=== PATIENT | female | born 1950 | race Caucasian/White ===

== ENCOUNTER 2017-01-11 10:00 | Outpatient (RCR) | payer MEDICARE, MEDICAID, SELFPAY | END 2017-02-02 | LOC: OT 10:00 | PROVIDERS: Visit Provider Orthopaedic Surgery | DX: M25.511 Pain in right shoulder (principal); M25.512 Pain in left shoulder | CPT/HCPCS: G8990; G8991; G8992; 97014; 97033; 97110; 97165; G0283 ==

== ENCOUNTER → 2017-01-23 | Outpatient (CLI) | payer MEDICARE, MEDICAID, SELFPAY | PROVIDERS: Family Provider Internal Medicine; Visit Provider Internal Medicine | DX: R50.9 Fever, unspecified (principal); R05 Cough; R09.3 Abnormal sputum | CPT/HCPCS: 71020 ==

== ENCOUNTER → 2017-03-20 09:36 | Outpatient (CLI) | payer MEDICARE, MEDICAID, SELFPAY ==
[2017-03-20 10:53] LABS: Anion Gap 12.5 mEq/L (5-15); Blood Urea Nitrogen 30 mg/dL (7-18); Carbon Dioxide 26 mmol/L (21.0-32.0); Chloride 108 mmol/L (98-107); Creatinine,Serum 1.47 mg/dL (0.55-1.02); Estimated Glomerular Filt Rate 36 ml/min (>60); GFR (African American) 43 ML/MIN (>60); Potassium 5.5 mmoL/L (3.5-5.1); Sodium 141 mmol/L (136-145)
[2017-03-20 11:48] LABS: Glucose 60 mg/dL (74-106)
[2017-03-20 12:39] LABS: Hemoglobin A1C 6.3 % (0.0-7.0)
[2017-03-23 12:03] LABS: Vitamin B12 573 pg/mL (232-1245)
== END ==
PROVIDERS: PCP Internal Medicine; Visit Provider Internal Medicine
DX: E11.42 Type 2 diabetes mellitus with diabetic polyneuropathy (principal); N18.3 Chronic kidney disease, stage 3 (moderate); W19.XXXA Unspecified fall, initial encounter
CPT/HCPCS: 36415; 80048; 82607; 83036

== ENCOUNTER → 2017-04-17 10:06 | Outpatient (CLI) | payer MEDICARE, MEDICAID, SELFPAY ==
[2017-04-17 10:30] LABS: Anion Gap 10.1 mEq/L (5-15); Blood Urea Nitrogen 33 mg/dL (7-18); Carbon Dioxide 32 mmol/L (21.0-32.0); Chloride 106 mmol/L (98-107); Creatinine,Serum 1.47 mg/dL (0.55-1.02); Estimated Glomerular Filt Rate 36 ml/min (>60); GFR (African American) 43 ML/MIN (>60); Potassium 4.1 mmoL/L (3.5-5.1); Sodium 144 mmol/L (136-145)
[2017-04-17 10:55] LABS: Glucose 66 mg/dL (74-106)
== END ==
PROVIDERS: Visit Provider Internal Medicine
DX: R60.9 Edema, unspecified (principal); N18.3 Chronic kidney disease, stage 3 (moderate); E11.22 Type 2 diabetes mellitus with diabetic chronic kidney disease
CPT/HCPCS: 36415; 80048

== ENCOUNTER → 2017-05-28 10:53 | Outpatient (CLI) | payer MEDICARE, MEDICAID, SELFPAY ==
[2017-05-28 10:59] LABS: Microscopic, Urine URINE MICROSCOPIC (MICROSCOPIC)
[2017-05-28 11:21] LABS: Creatinine,Urine Random 18 mg/dL (20-320)
[2017-05-28 11:23] LABS: Basophils % 0.4 % (0.1-2.0); Eosinophils # 0.3 K/mm3 (0.0-0.4); Eosinophils % 4.6 % (0.1-12.0); Hematocrit 31.2 % (37.0-47.0); Hemoglobin 9.7 g/dL (12.2-16.2); Lymphocytes # 1.8 K/mm3 (0.7-4.5); Mean Corpuscular HGB Conc 31.2 g/dL (31.8-35.4); Mean Corpuscular Hemoglobin 30.9 pg (27.0-31.2); Mean Corpuscular Volume 99.2 fl (81-99); Mean Platelet Volume 9.8 fl (7.4-10.4); Monocytes # 0.5 K/mm3 (0.1-1.0); Monocytes % 8.8 % (1.7-9.3); Neutrophils # 2.9 K/mm3 (1.8-7.8); Neutrophils % 53.1 % (37.0-80.0); Platelet Count 189 K/mm3 (142-424); Red Blood Count 3.14 M/mm3 (4.20-5.40); Red Cell Distribution Width 14.9 % (11.5-17.5); White Blood Count 5.4 K/mm3 (4.8-10.8)
[2017-05-28 11:30] LABS: Total Protein,Urine Random < 6.0 mg/dL (0.0-11.9)
[2017-05-28 11:58] LABS: Appearance,Urine CLEAR (Clear); Bilirubin,Urine Negative (Negative); Blood, Urine Negative (Negative); Color,Urine YELLOW (Yellow); Glucose,Urine (UA) Negative (Negative); Ketones,Urine Negative (Negative); Leukocyte Esterase,Urine 1+ (Negative); Nitrate,Urine Negative (Negative); Protein,Urine Negative (Negative); Urobilinogen,Urine 0.2 EU/dl (0.2)
[2017-05-28 12:07] LABS: Bacteria,Urine 1+ /lpf
[2017-05-28 12:11] LABS: Albumin Level 2.9 gm/dL (3.4-5.0); Anion Gap 10.1 mEq/L (5-15); Blood Urea Nitrogen 44 mg/dL (7-18); Calcium 8.4 mg/dL (8.5-10.1); Carbon Dioxide 33 mmol/L (21.0-32.0); Chloride 107 mmol/L (98-107); Creatinine,Serum 1.89 mg/dL (0.55-1.02); Estimated Glomerular Filt Rate 27 ml/min (>60); GFR (African American) 32 ML/MIN (>60); Phosphorous 4.5 mg/dL (2.4-4.9); Potassium 4.1 mmoL/L (3.5-5.1); Sodium 146 mmol/L (136-145)
[2017-05-28 12:21] LABS: Glucose 136 mg/dL (74-106)
[2017-05-29 06:05] LABS: Vitamin D 25 Hydroxy 11.1 ng/mL (30.0-100.0)
[2017-06-01 12:44] LABS: Parathyroid Hormone Intact 81 pg/mL (15-65)
== END ==
PROVIDERS: Visit Provider Internal Medicine Nephrology
DX: N18.3 Chronic kidney disease, stage 3 (moderate) (principal); R82.90 Unspecified abnormal findings in urine
CPT/HCPCS: 36415; 80069; 81001; 82570; 82652; 83970; 84155; 85025; 87086

== ENCOUNTER → 2017-06-04 13:42 | Outpatient (POV) | payer MEDICARE, MEDICAID, SELFPAY | PROVIDERS: Family Provider Internal Medicine; PCP Internal Medicine; Visit Provider Internal Medicine Nephrology | DX: Z00.00 Encounter for general adult medical examination without abnormal findings (principal) ==

== ENCOUNTER → 2017-10-16 13:04 | Outpatient (CLI) | payer MEDICARE, MEDICAID, SELFPAY ==
--- NOTE | 2017-10-16 13:20 | US_ITS ---
US kidney retroperitoneal comp HISTORY: ITS.REASON: CKD 3 ORDERING PHYSICIAN: Mj Mackay PATIENT AGE: 67 years Comparison: None FINDINGS: RIGHT KIDNEY:Unremarkable. Normal size and echogenicity. No hydronephrosis 10 x 5 x 7 cm LEFT KIDNEY:Unremarkable. No hydronephrosis. Normal size and echogenicity. 10 x 5 x 5 cm OTHER FINDINGS: No other pertinent findings IMPRESSION: Unremarkable bilateral renal ultrasound
[2017-10-16 15:14] LABS: Basophils % 0.5 % (0.1-2.0); Eosinophils # 0.3 K/mm3 (0.0-0.4); Eosinophils % 4.1 % (0.1-12.0); Hematocrit 32.2 % (37.0-47.0); Hemoglobin 10.6 g/dL (12.2-16.2); Lymphocytes # 2.1 K/mm3 (0.7-4.5); Lymphocytes % 34.5 K/mm3 (10-50); Mean Corpuscular Hemoglobin 31.4 pg (27.0-31.2); Mean Corpuscular Volume 95.4 fl (81-99); Mean Platelet Volume 9.1 fl (7.4-10.4); Monocytes # 0.5 K/mm3 (0.1-1.0); Monocytes % 7.9 % (1.7-9.3); Neutrophils # 3.3 K/mm3 (1.8-7.8); Platelet Count 224 K/mm3 (142-424); Red Blood Count 3.37 M/mm3 (4.20-5.40); Red Cell Distribution Width 14.9 % (11.5-17.5); White Blood Count 6.2 K/mm3 (4.8-10.8)
[2017-10-16 15:16] LABS: Creatinine,Urine Random 14 mg/dL (20-320)
[2017-10-16 16:43] LABS: Albumin Level 3.1 gm/dL (3.4-5.0); Blood Urea Nitrogen 39 mg/dL (7-18); Calcium 8.7 mg/dL (8.5-10.1); Carbon Dioxide 35 mmol/L (21.0-32.0); Chloride 101 mmol/L (98-107); Creatinine,Serum 1.87 mg/dL (0.55-1.02); Estimated Glomerular Filt Rate 27 ml/min (>60); Ferritin 54 ng/mL (8-388); GFR (African American) 33 ML/MIN (>60); Glucose 114 mg/dL (74-106); Phosphorous 4.8 mg/dL (2.4-4.9); Sodium 141 mmol/L (136-145)
[2017-10-22 10:06] LABS: Microalbumin, Urine <3.0 ug/mL
== END ==
PROVIDERS: Family Provider Internal Medicine; PCP Internal Medicine; Visit Provider Internal Medicine Nephrology
DX: D63.8 Anemia in other chronic diseases classified elsewhere (principal)
CPT/HCPCS: 36415; 76770; 80069; 82043; 82330; 82570; 82607; 82652; 82728; 82746; 83540; 83550; 83970; 85025

== ENCOUNTER → 2017-10-16 14:37 | Outpatient (CLI) | payer MEDICARE, MEDICAID, SELFPAY | PROVIDERS: PCP Internal Medicine; Visit Provider Internal Medicine Nephrology | DX: D63.8 Anemia in other chronic diseases classified elsewhere (principal) | CPT/HCPCS: 36415; 76770; 80069; 82043; 82330; 82570; 82607; 82652; 82728; 82746; 83540; 83550; 83970; 85025 ==

== ENCOUNTER → 2018-02-08 10:30 | Outpatient (CLI) | payer MEDICARE, MEDICAID, SELFPAY ==
--- NOTE | 2018-02-08 10:57 | XR_ITS ---
XR knee RT 3V HISTORY: Posttraumatic pain ITS.REASON: S/P FALL ON KNEES ORDERING PHYSICIAN: Romulo Haynes PATIENT AGE: 67 years COMPARISON: None FINDINGS: Mild tricompartment osteoarthritis. No fracture or dislocation. Generalized vascular calcification. IMPRESSION: Osteoarthritis, no acute finding.
--- NOTE | 2018-02-08 10:57 | XR_ITS ---
XR knee LT 3V HISTORY: Posttraumatic pain ITS.REASON: S/P FALL ON KNEES ORDERING PHYSICIAN: Romulo Haynes PATIENT AGE: 67 years COMPARISON: None FINDINGS: Mild tricompartment osteoarthritis. No acute fracture. Old proximal fibular shaft fracture. Generalized vascular calcification. IMPRESSION: Osteoarthritis, no acute finding
[2018-02-08 11:23] LABS: Basophils % 0.3 % (0.1-2.0); Eosinophils # 0.3 K/mm3 (0.0-0.4); Eosinophils % 5.3 % (0.1-12.0); Hematocrit 29.5 % (37.0-47.0); Hemoglobin 9.4 g/dL (12.2-16.2); Lymphocytes # 1.5 K/mm3 (0.7-4.5); Lymphocytes % 31.4 % (10-50); Mean Corpuscular Hemoglobin 31.7 pg (27.0-31.2); Mean Corpuscular Volume 99.1 fl (81-99); Mean Platelet Volume 9.2 fl (7.4-10.4); Monocytes # 0.3 K/mm3 (0.1-1.0); Monocytes % 7.2 % (1.7-9.3); Neutrophils # 2.6 K/mm3 (1.8-7.8); Neutrophils % 55.8 % (37.0-80.0); Platelet Count 156 K/mm3 (142-424); Red Blood Count 2.98 M/mm3 (4.20-5.40); Red Cell Distribution Width 14.4 % (11.5-17.5); White Blood Count 4.7 K/mm3 (4.8-10.8)
[2018-02-08 12:41] LABS: Alanine Aminotransferase 34 U/L (12-78); Albumin/Globulin Ratio 0.7 (1.1-1.8); Alkaline Phosphatase 95 U/L (46-116); Anion Gap 8.3 mEq/L (5-15); Aspartate Amino Transferase 51 U/L (15-37); Bilirubin,Total 0.5 mg/dL (0.2-1.0); Blood Urea Nitrogen 53 mg/dL (7-18); Calcium 8.2 mg/dL (8.5-10.1); Carbon Dioxide 32 mmol/L (21.0-32.0); Chloride 95 mmol/L (98-107); Chol/HDL Ratio 2.2 (1-3.5); Cholesterol 115 mg/dL (140-200); Creatinine,Serum 2.05 mg/dL (0.55-1.02); Estimated Glomerular Filt Rate 24 ml/min (>60); GFR (African American) 29 ML/MIN (>60); Globulin 4.2 gm/dl (1.3-3.2); HDL Cholesterol 52 mg/dL (29-89); LDL Cholesterol 53 mg/dL (0-130); Potassium 4.3 mmoL/L (3.5-5.1); Sodium 131 mmol/L (136-145); Total Protein,Serum 7.2 gm/dL (6.4-8.2); Triglycerides 51 mg/dL (30-200); VLDL Cholesterol 10 mg/dL (0-40)
[2018-02-08 13:00] LABS: Glucose 95 mg/dL (74-106)
[2018-02-08 13:08] LABS: Hemoglobin A1C 6.2 % (0.0-7.0)
== END ==
PROVIDERS: Visit Provider Internal Medicine
DX: E11.22 Type 2 diabetes mellitus with diabetic chronic kidney disease (principal); N18.3 Chronic kidney disease, stage 3 (moderate); R80.1 Persistent proteinuria, unspecified; E78.5 Hyperlipidemia, unspecified; M25.562 Pain in left knee; M25.561 Pain in right knee
CPT/HCPCS: 36415; 73562; 80053; 80061; 83036; 85025

== ENCOUNTER 2018-03-09 20:12 | Inpatient (IN) ==
[2018-03-09 20:35] LABS: ABG Base Excess 8.4 mmol/L (-2.4-2.3); ABG Oxygen Saturation 94 % (90-100); ABG PCO2 44.8 mmhg (35.0-45.0); ABG PH 7.47 mmol/L (7.35-7.45); ABG PO2 67.1 mmhg (80-100); ABG TCO2 33.4 mmhg (23-27)
[2018-03-09 20:36] LABS: Allen's Test Y; Oxygen R/A %
--- NOTE | 2018-03-09 20:38 | Emergency Department Note ---
ED Disposition Clinical Impression: RBBB, Cervical radiculopathy due to degenerative joint disease of spine Syncope Qualifiers: Syncope type: unspecified Qualified Code(s): R55 - Syncope and collapse Acute renal failure (ARF) Qualifiers: Acute renal failure type: unspecified Qualified Code(s): N17.9 - Acute kidney failure, unspecified Fall Qualifiers: Encounter type: initial encounter Qualified Code(s): W19.XXXA - Unspecified fall, initial encounter Bedbug bite Qualifiers: Encounter type: initial encounter Qualified Code(s): W57.XXXA - Bitten or stung by nonvenomous insect and other nonvenomous arthropods, initial encounter Disposition: Admitted as Observation Condition on Discharge: Serious Referrals: Provider,Referral, [Referring] - - Critical Care Critical Care Time: No Attestation: On 03/09/18, the high probability of a clinically significant, sudden or life threatening deterioration of the following system(s) required my full and direct attention, intervention and personal management. The time I documented below is in addition to time spent performing reported procedures but includes the following listed in this critical care notation. Medical Decision Making - Medical Records Medical records reviewed: Yes: I reviewed the patient's medical records. - Iron Inquiry Pt receiving controlled substance: No Vital Signs: 03/09/18 20:13 Temperature 98.6 F Temperature Source Oral Pulse Rate [Right Radial] 60 Respiratory Rate 18 Blood Pressure [Right Arm] 125/57 L Blood Pressure Mean [Right Arm] 79 02 Sat by Pulse Oximetry 97 - Lab Data Lab results reviewed: Yes: I reviewed the patient's lab results. Lab Results 03/09/18 20:34: Specimen Source R/r, O2 % R/a, ABG pH 7.47 H, ABG pCO2 44.8, ABG pO2 67.1 L, ABG HCO3 32.0 H, ABG Total CO2 33.4 H, ABG O2 Saturation 94, ABG Base Excess 8.4 H, Neal Test Y 03/09/18 20:35: Influenza Type A Ag Negative, Influenza Type B Ag Negative 03/09/18 21:40: WBC 4.6 L, RBC 3.37 L, Hgb 10.6 L, Hct 32.1 L, MCV 95.3, MCH 31.3 H, MCHC 32.9, RDW 14.3, Plt Count 143, MPV 8.7, Neut % (Auto) 55.0, Lymph % (Auto) 33.7, [place] % (Auto) 8.1, Eos % (Auto) 2.8, Baso % (Auto) 0.3, Neut # (Auto) 2.5, Lymph # (Auto) 1.5, [place] # (Auto) 0.4, Eos # (Auto) 0.1, Baso # (Auto) 0.0 03/09/18 21:40: Sodium 140, Potassium 4.6, Chloride 102, Carbon Dioxide 29, Anion Gap 13.6, BUN 113 H*, Creatinine 3.63 H, Estimated Creat Clear 19, Estimated GFR 13 L*, Est GFR ( Amer) 15 L*, Glucose 126 H, Calcium 9.3, Total Bilirubin 0.6, AST 82 H, ALT 64, Alkaline Phosphatase 103, Troponin I < 0.02, Total Protein 8.2, Albumin 3.2 L, Globulin 5.0 H, Albumin/Globulin Ratio 0.6 L 03/09/18 21:40: Lactate 1.1 Result diagrams: 03/09/18 21:40 03/09/18 21:40 Orders (Tests/Meds): ED MEDICATIONS Generic Name Dose Route Start Last Admin Trade Name Freq PRN Reason Stop Dose Admin Sodium Chloride 1,000 mls @ 999 mls/hr 03/09/18 20:30 03/09/18 22:28 Sod Chlor 0.9% 1000ml Bag IV 03/09/18 21:30 999 mls/hr .Q1H1M ISABELLA Administration Sodium Chloride 10 ml 03/09/18 20:21 Saline Flush 10ml Syringe IV 04/08/18 20:20 NEEDED PRN Maintain IV Site ORDERS Category Date Time Status CT cervical spine wo con Stat Cat Scan 03/09/18 20:[address] head/brain wo con Stat Cat Scan 03/09/18 20:20 Taken XR chest AP Stat Exams 03/09/18 20:20 Taken XR pelvis 1-2V Stat Exams 03/09/18 20:21 Taken UDS [Drug Screen,Urine] Stat Lab 03/09/18 22:26 Received Urinalysis and Microscopic Stat Lab 03/09/18 22:26 Received Blood Culture Stat Micro 03/09/18 21:40 Received Arterial Blood Gas Stat RT 03/09/18 20:21 Ordered - Radiology Data #1 Image(s): Chest, Pelvis Image Reviewed: Yes I reviewed the patient's radiology image Preliminary Findings: Abnormal (cm) - CT Data CT Scan: Head, C-Spine Time Received: 22:[address] Reviewed: Yes: I have viewed the radiologist's interpretation Preliminary Findings: Abnormal (see report ) - ECG Data Tracing #1 Arrhythmias present: sinus bebeto Ischemic changes: non-specific ST-T wave changes Conduction abnormalities present: RBBB ECG compared to prior tracings: there are no significant changes - Physician Consults Physician Consulted: aron Reason -: Admission Weakness HPI - General Chief complaint: Weakness Stated complaint: weakness Time Seen by Provider: 03/09/18 20:20 Mode of Arrival: EMS Source of Information: Patient, EMS, Medical Record Limitations: Physical Limitations Description of Symptoms (Recalled from ER Triage Doc. by RN): pt fell at home today and crawled to the bed to call 911. ems reports that patient is not her n ormal self. reports that patient is weak and unable to hold herself up. patient reports generalized weakness and "not feeling well" x 2 weeks. pt states she fell because she was dizzy. pt denies any injury or pain from the fall. - History of Present Illness HPI Narrative: pt reports not feeling well over the last 2 weeks and had dizzy spell and fainted this pm as she was getting up - no chest pain or incont and denied any trauma or sense of arrthymia - she denied any vomiting or diarrhea but reports has been taking her meds - MD Complaint: generalized weakness Onset (ago): hour(s) Migration: none Severity: moderate Associated symptoms: denies other symptoms - Related Data Allergies Allergy/AdvReac Type Severity Reaction Status Date / Time ? ANTIBIOTIC Allergy Intermediate I-RASH/ITCHING, Uncoded 01/23/17 14:38 NAME NOT KNOWN-GIVEN FOR BRONCHITIS H History - Hepatitis A Screen Drug use history?: No High risk sexual behaviors?: No History of sexually transmitted infection?: No Currently employed?: No Childcare worker?: No Do you have indoor plumbing?: Yes Do you have electricity?: Yes Attestation statement:: This patient has been screened for Hepatitis A risk factors. I have reviewed the patient's past medical history: Yes Medical History: Reports:: Diabetes Mellitus Type 2 - Social History Smoking Status: Current every day smoker Alcohol Intake: never Occupational Status: unemployed - Psychiatric History Expresses thoughts of harming self/others: None Suicide Plan Description: No Plan ROS Obtained: Yes All systems reviewed & no additional complaints - Constitutional Constitutional: Denies fever(s), Reports weakness - Eyes Eyes: Denies change in vision - ENT Ears, Nose, Mouth, and Throat: Denies sore throat - Cardiovascular Cardiovascular: Denies chest pain, Denies dyspnea, Denies palpitations - Respiratory Respiratory: No cough, No dyspnea, No coughing up blood - Gastrointestinal Gastrointestingal: Denies: abdominal pain, diarrhea, nausea, vomiting - Genitourinary Female Genitourinary: Denies dysuria, Denies hematuria - Musculoskeletal Musculoskeletal: Denies joint pain, Denies joint swelling, Denies neck pain - Integumentary/Breasts Skin/Breast: Denies rash - Neurologic Neurologic: Denies abnormal speech, Denies confusion, Denies convulsions, Denies focal weakness, Denies seizure-like activity, Reports syncope Physical Exam - General General appearance: alert, in no apparent distress - Head Head exam: atraumatic, normocephalic - Eye Eye exam: Present: PERRL, EOMI. Absent: scleral icterus - ENT ENT exam: Present: mucous membranes dry, other (no evid of tongue biting ) - Neck Neck exam: Present: trachea midline - Respiratory Respiratory exam: Present: normal lung sounds bilaterally. Absent: respiratory distress - Cardiovascular Cardiovascular exam: Present: regular rate, systolic murmur, +S4 - Abdominal Exam Abdominal exam: Present: soft. Absent: tenderness - Extremities Exam Extremities exam: Present: normal inspection, full ROM. Absent: calf tenderness - Back Exam Back exam: Present: normal inspection - Neurological Exam Neurological exam: Present: alert, oriented X3, CN II-XII intact. Absent: motor sensory deficit - Psychiatric Psychiatric exam: Present: flat affect - Skin Skin exam: Present: other (has bedbugs ). Absent: rash
[2018-03-09 20:53] LABS: Microscopic, Urine URINE MICROSCOPIC (MICROSCOPIC)
[2018-03-09 21:51] LABS: Basophils % 0.3 % (0.1-2.0); Eosinophils # 0.1 K/mm3 (0.0-0.4); Eosinophils % 2.8 % (0.1-12.0); Hematocrit 32.1 % (37.0-47.0); Hemoglobin 10.6 g/dL (12.2-16.2); Lymphocytes # 1.5 K/mm3 (0.7-4.5); Lymphocytes % 33.7 % (10-50); Mean Corpuscular HGB Conc 32.9 g/dL (31.8-35.4); Mean Corpuscular Hemoglobin 31.3 pg (27.0-31.2); Mean Corpuscular Volume 95.3 fl (81-99); Mean Platelet Volume 8.7 fl (7.4-10.4); Monocytes # 0.4 K/mm3 (0.1-1.0); Monocytes % 8.1 % (1.7-9.3); Neutrophils # 2.5 K/mm3 (1.8-7.8); Platelet Count 143 K/mm3 (142-424); Red Blood Count 3.37 M/mm3 (4.20-5.40); Red Cell Distribution Width 14.3 % (11.5-17.5); White Blood Count 4.6 K/mm3 (4.8-10.8)
[2018-03-09 22:07] LABS: Alanine Aminotransferase 64 U/L (12-78); Albumin Level 3.2 gm/dL (3.4-5.0); Albumin/Globulin Ratio 0.6 (1.1-1.8); Alkaline Phosphatase 103 U/L (46-116); Anion Gap 13.6 mEq/L (5-15); Aspartate Amino Transferase 82 U/L (15-37); Bilirubin,Total 0.6 mg/dL (0.2-1.0); Calcium 9.3 mg/dL (8.5-10.1); Carbon Dioxide 29 mmol/L (21.0-32.0); Chloride 102 mmol/L (98-107); Glucose 126 mg/dL (74-106); Potassium 4.6 mmoL/L (3.5-5.1); Sodium 140 mmol/L (136-145); Total Protein,Serum 8.2 gm/dL (6.4-8.2)
[2018-03-09 22:09] LABS: Blood Urea Nitrogen 113 mg/dL (7-18)
[2018-03-09 22:32] LABS: Appearance,Urine CLEAR (Clear); Bilirubin,Urine Negative (Negative); Blood, Urine Negative (Negative); Color,Urine YELLOW (Yellow); Glucose,Urine (UA) Negative (Negative); Ketones,Urine Negative (Negative); Leukocyte Esterase,Urine TRACE (Negative); PH,Urine 7.5 (5.0-8.5); Protein,Urine Negative (Negative); Urobilinogen,Urine 0.2 EU/dl (0.2)
[2018-03-09 22:42] LABS: Amphetamine/Metha Screen,Urine Negative ng/mL (<1000); Barbiturates Screen,Urine Positive ng/mL (<200); Benzodiazepines Screen,Urine Negative ng/mL (<200); Cannabinoid Screen,Urine Negative ng/mL (<50); Cocaine Screen,Urine Negative ng/mL (<300); Methadone Screen,Urine Negative ng/mL (<300); Opiate Screen,Urine Negative ng/mL (<300); Phencyclidine Screen,Urine Negative ng/mL (<25)
[2018-03-10 05:23] LABS: Basophils % 0.1 % (0.1-2.0); Eosinophils # 0.2 K/mm3 (0.0-0.4); Eosinophils % 3.6 % (0.1-12.0); Lymphocytes # 1.3 K/mm3 (0.7-4.5); Lymphocytes % 31.4 % (10-50); Mean Corpuscular HGB Conc 31.6 g/dL (31.8-35.4); Mean Corpuscular Hemoglobin 30.7 pg (27.0-31.2); Mean Corpuscular Volume 97.1 fl (81-99); Mean Platelet Volume 8.7 fl (7.4-10.4); Monocytes # 0.3 K/mm3 (0.1-1.0); Neutrophils # 2.4 K/mm3 (1.8-7.8); Neutrophils % 57.8 % (37.0-80.0); Platelet Count 147 K/mm3 (142-424); Red Blood Count 2.78 M/mm3 (4.20-5.40); Red Cell Distribution Width 14.2 % (11.5-17.5); White Blood Count 4.2 K/mm3 (4.8-10.8)
[2018-03-10 05:34] LABS: Hemoglobin 8.5 g/dL (12.2-16.2)
[2018-03-10 05:44] LABS: Anion Gap 12.2 mEq/L (5-15); Carbon Dioxide 30 mmol/L (21.0-32.0); Chloride 105 mmol/L (98-107); Potassium 4.2 mmoL/L (3.5-5.1); Sodium 143 mmol/L (136-145)
[2018-03-10 05:45] LABS: Blood Urea Nitrogen 102 mg/dL (7-18); Calcium 8.1 mg/dL (8.5-10.1); Glucose 230 mg/dL (74-106)
--- NOTE | 2018-03-10 07:29 | History & Physical Report ---
*Admission Date: 03/09/18 *Chief complaint: Weakness and fall *History of present illness: 67-year-old white female, who lives by herself and public assistance housing apartment in [facility], who has a very fragmented medical history and currently we are unaware of her location history, who came to the emergency department by EMS because she fell and was unable to get up. She reports a 3- week history of increasing nausea with vomiting and a feeling of sickness. She is been progressively weak and unable to care for herself. In the emergency department she was found to be severely uremic with BUN over 100, creatinine over 3. Review of previous labs shows that in the year 2016 her creatinine was normal. In January 2018 she had slight increased levels but certainly nothing nearly this significant. She was also found to have right bundle branch block on her EKG. Admitted to hospital for evaluation/treatment of acute kidney injury and rehydration and evaluation of her weakness. Patient this morning feels "better." [facility] [place] History I have reviewed the patient's past medical history: Yes (History very unreliable from patient. Significant lack of medical records) Medical History: Reports:: Diabetes Mellitus Type 2, Hyperlipidemia, Hypertension Have you ever received a pneumonia vaccine?: No Have you received a flu vaccine this season?: Yes Other Medical History: Reports: Arthritis, Hypothyroidism Other Surgeries: Yes: No Previous Surgery - *Social History Educational Level: Completed High School Smoking Status: Current some day smoker Tobacco Type: cigarettes, cigars # Packs/Day (cigarettes): 1 #Yrs smoked (if former smoker): 53 Alcohol Intake: never Occupational Status: unemployed Housing: apartment Household Members: none Travel in the last 8 weeks: None - Psychiatric History Expresses thoughts of harming self/others: None Suicide Plan Description: No Plan *Family Hx:: Unable to obtain, Adopted Review of Systems - Review of Systems Review of systems:: pertinent systems reviewed and negative unless documented below - Constitutional Reports anorexia, Reports lack of energy - Eyes Denies blind spots - ENT Reports dizziness, Denies abnormal hearing, Denies bleeding gums - *Cardiovascular Denies chest pain, Denies excessive sweating, Denies shortness of breath - *Respiratory Denies change in phlegm color, Denies chest congestion - *Gastrointestinal Denies abdominal pain, Denies incontinent of stools, Denies heartburn - *Genitourinary Denies abnormal periods - *Musculoskeletal Denies abnormal walking, Denies joint pain, Denies decreased muscle mass - *Neurologic Reports fainting, Reports weakness, Denies abnormal speech, Denies confusion, Denies seizure-like activity, Denies localized weakness, Denies seizure-like activity Meds Home Medications Medication Instructions Recorded Confirmed Type Unobtainable 03/10/18 03/10/18 History Allergies Allergy/AdvReac Type Severity Reaction Status Date / Time ? ANTIBIOTIC Allergy Intermediate I-RASH/ITCHING, Uncoded 01/23/17 14:38 NAME NOT KNOWN-GIVEN FOR BRONCHITIS Exam Vital signs and Labs for Last 24 Hours: Temp Pulse Resp BP Pulse Ox 97.7 F 58 L 18 114/49 L 96 03/10/18 04:00 03/10/18 04:00 03/10/18 04:00 03/10/18 04:00 03/10/18 04:00 Laboratory Results - last 24 hr 03/09/18 20:34: Specimen Source R/r, O2 % R/a, ABG pH 7.47 H, ABG pCO2 44.8, ABG pO2 67.1 L, ABG HCO3 32.0 H, ABG Total CO2 33.4 H, ABG O2 Saturation 94, ABG Base Excess 8.4 H, Neal Test Y 03/09/18 20:35: Influenza Type A Ag Negative, Influenza Type B Ag Negative 03/09/18 21:40: WBC 4.6 L, RBC 3.37 L, Hgb 10.6 L, Hct 32.1 L, MCV 95.3, MCH 31.3 H, MCHC 32.9, RDW 14.3, Plt Count 143, MPV 8.7, Neut % (Auto) 55.0, Lymph % (Auto) 33.7, [place] % (Auto) 8.1, Eos % (Auto) 2.8, Baso % (Auto) 0.3, Neut # (Auto) 2.5, Lymph # (Auto) 1.5, [place] # (Auto) 0.4, Eos # (Auto) 0.1, Baso # (Auto) 0.0 03/09/18 21:40: Sodium 140, Potassium 4.6, Chloride 102, Carbon Dioxide 29, Anion Gap 13.6, BUN 113 H*, Creatinine 3.63 H, Estimated Creat Clear 19, Estimated GFR 13 L*, Est GFR ( Amer) 15 L*, Glucose 126 H, Calcium 9.3, Total Bilirubin 0.6, AST 82 H, ALT 64, Alkaline Phosphatase 103, Troponin I < 0.02, Total Protein 8.2, Albumin 3.2 L, Globulin 5.0 H, Albumin/Globulin Ratio 0.6 L 03/09/18 21:40: Lactate 1.1 03/09/18 21:40: Total Creatine Kinase 146 03/09/18 22:26: Urine Color Yellow, Urine Appearance Clear, Urine pH 7.5, Ur Specific [place] 1.010, Urine Protein Negative, Urine Glucose (UA) Negative, Urine Ketones Negative, Urine Blood Negative, Urine Nitrate Negative, Urine Bilirubin Negative, Urine Urobilinogen 0.2, Ur Leukocyte Esterase Trace, Urine WBC 3-5, Ur Squamous Epith Cells 3-5 03/09/18 22:26: Urine Opiates Screen Negative, Urine Methadone Screen Negative, Ur Barbituates Screen Positive H, Ur Phencyclidine Scrn Negative, Ur Amphetamines Screen Negative, U Benzodiazepines Scrn Negative, Urine Cocaine Screen Negative, U Marijuana (THC) Screen Negative 03/10/18 01:40: Troponin I 0.02 03/10/18 04:45: Sodium 143, Potassium 4.2, Chloride 105, Carbon Dioxide 30, Anion Gap 12.2, BUN 102 H*, Creatinine 3.01 H, Estimated Creat Clear 23, Estimated GFR 16 L*, Est GFR ( Amer) 19 L* D, Glucose 230 H D, Calcium 8.1 L D, Magnesium 3.0 H, Troponin I < 0.02 03/10/18 04:45: WBC 4.2 L, RBC 2.78 L, Hgb 8.5 L D, Hct 27.0 L, MCV 97.1, MCH 30.7, MCHC 31.6 L, RDW 14.2, Plt Count 147, MPV 8.7, Neut % (Auto) 57.8, Lymph % (Auto) 31.4, [place] % (Auto) 7.0, Eos % (Auto) 3.6, Baso % (Auto) 0.1, Neut # (Auto) 2.4, Lymph # (Auto) 1.3, [place] # (Auto) 0.3, Eos # (Auto) 0.2, Baso # (Auto) 0.0 03/10/18 05:47: POC Glucose 194 H I & O for Last 24 hours: Intake & Output 03/07/18 03/08/18 03/09/18 03/10/18 11:59 11:59 11:59 11:59 Intake Total 629 / 629 Balance 629 / 629 Weight 174 lb 13.225 oz Narrative: Patient appears older than stated age, pleasant. A couple of homemade tattoos on her right arm. Edentulous. Dry oral mucosa but no lesions. Lungs clear. Heart rate regular. Abdomen is soft. Neurologic exam is sluggish but she is able to respond to commands and has symmetric cranial nerves. Extremities are warm and well-perfused. She has scattered bedbug bites on her extremities. One small bruise on the inside of the right elbow but no other evidence of trauma or skin breakdown. No evidence of head trauma. Assessment and Plan (1) Diabetes mellitus type 2 in obese Current visit: Yes Status: Acute Category: Medical Code(s): E11.69 - Type 2 diabetes mellitus with other specified complication; E66.9 - Obesity, unspecified We will begin insulin coverage. Try to obtain medicine list from pharmacy when they are open on Sunday. (2) History of hypothyroidism Current visit: Yes Status: Acute Category: Medical Code(s): Z86.39 - Personal history of other endocrine, nutritional and metabolic disease Check TSH. Unknown medication profile (3) Acute renal failure (ARF) Current visit: Yes Status: Acute Qualifiers: Acute renal failure type: unspecified Qualified Code(s): N17.9 - Acute kidney failure, unspecified Category: Medical Code(s): N17.9 - Acute kidney failure, unspecified Patient has had good urine output overnight. Continue IV fluids. Monitor labs in the morning. Slight improvement in creatinine. Check urinalysis and ultrasound. (4) Bedbug bite Current visit: Yes Status: Acute Qualifiers: Encounter type: initial encounter Category: Medical Code(s): W57.XXXA - Bitten or stung by nonvenomous insect and other nonvenomous arthropods, initial encounter Nursing care begun. (5) Fall Current visit: Yes Status: Acute Qualifiers: Encounter type: initial encounter Qualified Code(s): W19.XXXA - Unspecified fall, initial encounter Category: Medical Code(s): W19.XXXA - Unspecified fall, initial encounter PT/OT evaluation. (6) RBBB Current visit: Yes Status: Acute Category: Medical Code(s): I45.10 - Unspecified right bundle-branch block Probably old finding. (7) Syncope Current visit: Yes Status: Acute Qualifiers: Syncope type: unspecified Qualified Code(s): R55 - Syncope and collapse Category: Medical Code(s): R55 - Syncope and collapse Probably from kidney injury/dehydration. Continue to monitor.
--- NOTE | 2018-03-10 12:05 | Pharmacy Consult Notes ---
[facility] Pharmacy VTE Monitoring - Patient Demographics Admission date: 03/10/18 Report Date: 03/10/18 Time: 12:05 Allergies/Adverse Reactions: Patient Allergies ? ANTIBIOTIC Allergy (Intermediate, Uncoded 01/23/17 14:38) I-RASH/ITCHING, NAME NOT KNOWN-GIVEN FOR BRONCHITIS Height: 1.6 m Weight: 79.3 kg Patient Problems: Current Active Problems Syncope (Acute) Acute renal failure (ARF) (Acute) Fall (Acute) RBBB (Acute) Cervical radiculopathy due to degenerative joint disease of spine (Acute) Bedbug bite (Acute) Diabetes mellitus type 2 in obese (Acute) History of hypothyroidism (Acute) - VTE Risk Labs: VTE Related Lab Results Hgb 8.5 g/dL (12.2-16.2) L D 03/10/18 04:45 Hct 27.0 % (37.0-47.0) L 03/10/18 04:45 Plt Count 147 K/mm3 (142-424) 03/10/18 04:45 BUN 102 mg/dL (7-18) H* 03/10/18 04:45 Creatinine 3.01 mg/dL (0.55-1.02) H 03/10/18 04:45 Estimated Creat Clear 23 mL/min (50-200) 03/10/18 04:45 Was VTE Risk Assessment Performed: Yes VTE Score: 3 VTE Risk Level: Low Risk - Prophylaxis Types of VTE Prophylaxis: TEDS Knee High (TERRELL HOSE ORDER PLACED)
[2018-03-11 06:59] LABS: Basophils % 0.2 % (0.1-2.0); Eosinophils # 0.2 K/mm3 (0.0-0.4); Eosinophils % 3.1 % (0.1-12.0); Hematocrit 27.8 % (37.0-47.0); Hemoglobin 9.1 g/dL (12.2-16.2); Lymphocytes # 1.4 K/mm3 (0.7-4.5); Lymphocytes % 27.9 % (10-50); Mean Corpuscular HGB Conc 32.7 g/dL (31.8-35.4); Mean Corpuscular Hemoglobin 31.6 pg (27.0-31.2); Mean Corpuscular Volume 96.7 fl (81-99); Mean Platelet Volume 8.9 fl (7.4-10.4); Monocytes # 0.3 K/mm3 (0.1-1.0); Monocytes % 6.1 % (1.7-9.3); Neutrophils # 3.2 K/mm3 (1.8-7.8); Neutrophils % 62.7 % (37.0-80.0); Platelet Count 143 K/mm3 (142-424); Red Blood Count 2.88 M/mm3 (4.20-5.40); Red Cell Distribution Width 14.3 % (11.5-17.5); White Blood Count 5.1 K/mm3 (4.8-10.8)
[2018-03-11 07:40] LABS: Albumin Level 2.5 gm/dL (3.4-5.0); Albumin/Globulin Ratio 0.6 (1.1-1.8); Anion Gap 13.1 mEq/L (5-15); Bilirubin,Total 0.6 mg/dL (0.2-1.0); Calcium 8.2 mg/dL (8.5-10.1); Globulin 4.3 gm/dl (1.3-3.2); Potassium 4.1 mmoL/L (3.5-5.1); Total Protein,Serum 6.8 gm/dL (6.4-8.2)
--- NOTE | 2018-03-11 08:23 | Progress Note ---
Internal Medicine - PN: Subj *Date: 03/11/18 *Time: 08:21 Interval history: Overall patient feels much better than yesterday. Is able to give much more of a good history. Exam Vital signs and Labs for Last 24 Hours: Temp Pulse Resp BP Pulse Ox 97.6 F 62 17 147/67 H 98 03/11/18 04:00 03/11/18 04:00 03/11/18 04:00 03/11/18 04:00 03/11/18 04:00 Laboratory Results - last 24 hr 03/10/18 08:10: Ammonia 98 H 03/10/18 11:05: POC Glucose 253 H 03/10/18 16:43: POC Glucose 227 H 03/10/18 21:45: POC Glucose 183 H 03/11/18 06:01: POC Glucose 100 03/11/18 06:08: WBC 5.1, RBC 2.88 L, Hgb 9.1 L, Hct 27.8 L, MCV 96.7, MCH 31.6 H , MCHC 32.7, RDW 14.3, Plt Count 143, MPV 8.9, Neut % (Auto) 62.7, Lymph % (Auto) 27.9, [place] % (Auto) 6.1, Eos % (Auto) 3.1, Baso % (Auto) 0.2, Neut # (Auto) 3.2, Lymph # (Auto) 1.4, [place] # (Auto) 0.3, Eos # (Auto) 0.2, Baso # (Auto) 0.0 03/11/18 06:08: Sodium 142, Potassium 4.1, Chloride 107, Carbon Dioxide 26, Anion Gap 13.1, BUN 65 H D, Creatinine 1.83 H D, Estimated Creat Clear 39, Estimated GFR 28 L, Est GFR ( Amer) 33 L D, Glucose 105, Calcium 8.2 L, Total Bilirubin 0.6, AST 71 H, ALT 62, Alkaline Phosphatase 85, Total Protein 6.8, Albumin 2.5 L D, Globulin 4.3 H, Albumin/Globulin Ratio 0.6 L I & O for Last 24 hours: Intake & Output 03/08/18 03/09/18 03/10/18 03/11/18 11:59 11:59 11:59 11:59 Intake Total 1109 / 1109 3914 / 3914 Output Total 1600 / 1600 2800 / 2800 Balance -491 / -491 1114 / 1114 Weight 174 lb 13.225 oz 182 lb 1.629 oz Narrative: Patient is awake. Oriented x2. Lungs are clear, heart rate regular. Abdomen soft, Cortes catheter draining clear yellow urine. Oropharynx is clear but edentulous, no lesions. No skin breakdown. Neurologically intact other than mild disorientation. To time. Assessment and Plan (1) Diabetes mellitus type 2 in obese Current visit: Yes Status: Acute Category: Medical Code(s): E11.69 - Type 2 diabetes mellitus with other specified complication; E66.9 - Obesity, unspecified (2) History of hypothyroidism Current visit: Yes Status: Acute Category: Medical Code(s): Z86.39 - Personal history of other endocrine, nutritional and metabolic disease (3) Acute renal failure (ARF) Current visit: Yes Status: Acute Qualifiers: Acute renal failure type: unspecified Qualified Code(s): N17.9 - Acute kidney failure, unspecified Category: Medical Code(s): N17.9 - Acute kidney failure, unspecified (4) Bedbug bite Current visit: Yes Status: Acute Qualifiers: Encounter type: initial encounter Qualified Code(s): W57.XXXA - Bitten or stung by nonvenomous insect and other nonvenomous arthropods, initial encounter Category: Medical Code(s): W57.XXXA - Bitten or stung by nonvenomous insect and other nonvenomous arthropods, initial encounter (5) Fall Current visit: Yes Status: Acute Qualifiers: Encounter type: initial encounter Qualified Code(s): W19.XXXA - Unspecified fall, initial encounter Category: Medical Code(s): W19.XXXA - Unspecified fall, initial encounter (6) RBBB Current visit: Yes Status: Acute Category: Medical Code(s): I45.10 - Unspecified right bundle-branch block (7) Syncope Current visit: Yes Status: Acute Qualifiers: Syncope type: unspecified Qualified Code(s): R55 - Syncope and collapse Category: Medical Code(s): R55 - Syncope and collapse - Assessment and plan all Dx Assessment and Plan for all problems:: Above problems are improving. Renal failure has improved nicely. We will hold nephrotoxic medicines. Continue primidone for her essential tremor disorder. Continue sliding scale insulin. Anemia seems to be from her renal issues/chronic disease issues. PT evaluation for possible evaluation for placement.
[2018-03-12 06:51] LABS: Basophils % 0.2 % (0.1-2.0); Eosinophils # 0.2 K/mm3 (0.0-0.4); Hematocrit 26.2 % (37.0-47.0); Hemoglobin 8.6 g/dL (12.2-16.2); Lymphocytes # 1.4 K/mm3 (0.7-4.5); Lymphocytes % 28.3 % (10-50); Mean Corpuscular HGB Conc 32.9 g/dL (31.8-35.4); Mean Corpuscular Hemoglobin 31.9 pg (27.0-31.2); Mean Corpuscular Volume 96.8 fl (81-99); Mean Platelet Volume 8.8 fl (7.4-10.4); Monocytes # 0.3 K/mm3 (0.1-1.0); Monocytes % 6.6 % (1.7-9.3); Neutrophils % 60.9 % (37.0-80.0); Platelet Count 139 K/mm3 (142-424); Red Blood Count 2.71 M/mm3 (4.20-5.40); Red Cell Distribution Width 14.2 % (11.5-17.5); White Blood Count 4.8 K/mm3 (4.8-10.8)
[2018-03-12 07:04] LABS: Anion Gap 11.9 mEq/L (5-15); Calcium 8.4 mg/dL (8.5-10.1); Potassium 3.9 mmoL/L (3.5-5.1)
--- NOTE | 2018-03-12 08:52 | Discharge Summary ---
General - General Admission date:: 03/09/18 Discharge date: 03/12/18 HPI HPI: 67-year-old white female, who lives by herself and public assistance housing apartment in [facility], who has a very fragmented medical history and currently we are unaware of her location history, who came to the emergency department by EMS because she fell and was unable to get up. She reports a 3- week history of increasing nausea with vomiting and a feeling of sickness. She is been progressively weak and unable to care for herself. In the emergency department she was found to be severely uremic with BUN over 100, creatinine over 3. Review of previous labs shows that in the year 2016 her creatinine was normal. In January 2018 she had slight increased levels but certainly nothing nearly this significant. She was also found to have right bundle branch block on her EKG. Admitted to hospital for evaluation/treatment of acute kidney injury and rehydration and evaluation of her weakness. Patient this morning feels "better." Hospital Course Hospital Course: Patient was admitted for acute renal failure, dehydration, uremia, and some mild confusion. She is responded well to holding her antihypertensive medications and fluid resuscitation. Creatinine not quite back to baseline today however significant improved. Patient mentating at baseline. Alert and oriented x3. Still weak. Has been asked by physical therapy and would benefit from short stay in intermediate care facility for rehab prior to eventual getting home. Afebrile, denies nausea or vomiting, denies any chest pain, confusion. At time of discharge, held diuretics. Restart low-dose lisinopril. Would also recommend considering in the outpatient setting possibly switching the patient to propranolol for her essential tremor as opposed to continuing the primidone given his metabolism to phenobarbital and possible worsening of confusion. Objective Vital signs: Temp Pulse Resp BP Pulse Ox 98.4 F 72 19 138/54 L 98 03/12/18 08:00 03/12/18 08:00 03/12/18 08:00 03/12/18 08:00 03/12/18 08:00 - *Routine HEENT Exam Head: Present: normocephalic, atraumatic Eye: Present: EOMI, PERRL ENT: Present: mucous membranes moist Comments: head tremor - *Routine Neck Exam Present: supple, full ROM. Absent: JVD - *Routine Respiratory Exam Present: CTA bilaterally. Absent: accessory muscle use, prolonged expiratory phase - *Routine Cardiovascular Exam Present: RRR, Normal S1 - *Routine Abdominal Exam Present: soft, normoactive bowel sounds. Absent: tenderness - *Routine Rectal Exam Patient deferred: visual exam - *Routine Exam Patient deferred: external exam - *Routine Extremities Exam Absent: cyanosis, clubbing, edema - *Routine Skin Exam Present: intact. Absent: cyanosis, erythema - *Routine Neurological Exam Present: alert, oriented X3, tremors (baseline). Absent: altered mental status Results Labs on day of discharge: Labs from last 24 hours 03/12/18 03/12/18 03/12/18 06:15 06:15 05:42 WBC 4.8 RBC 2.71 L Hgb 8.6 L Hct 26.2 L MCV 96.8 MCH 31.9 H MCHC 32.9 RDW 14.2 Plt Count 139 L MPV 8.8 Neut % (Auto) 60.9 Lymph % (Auto) 28.3 [place] % (Auto) 6.6 Eos % (Auto) 4.0 Baso % (Auto) 0.2 Neut # (Auto) 3.0 Lymph # (Auto) 1.4 [place] # (Auto) 0.3 Eos # (Auto) 0.2 Baso # (Auto) 0.0 Sodium 141 Potassium 3.9 Chloride 109 H Carbon Dioxide 24 Anion Gap 11.9 BUN 48 H D Creatinine 1.44 H D Estimated Creat Clear 50 Estimated GFR 36 L Est GFR ( Amer) 44 L D Glucose 94 POC Glucose 92 Calcium 8.4 L Vitamin B12 03/11/18 03/11/18 03/11/18 20:05 17:16 11:39 WBC RBC Hgb Hct MCV MCH MCHC RDW Plt Count MPV Neut % (Auto) Lymph % (Auto) [place] % (Auto) Eos % (Auto) Baso % (Auto) Neut # (Auto) Lymph # (Auto) [place] # (Auto) Eos # (Auto) Baso # (Auto) Sodium Potassium Chloride Carbon Dioxide Anion Gap BUN Creatinine Estimated Creat Clear Estimated GFR Est GFR ( Amer) Glucose POC Glucose 211 H 226 H 168 H Calcium Vitamin B12 03/10/18 08:10 WBC RBC Hgb Hct MCV MCH MCHC RDW Plt Count MPV Neut % (Auto) Lymph % (Auto) [place] % (Auto) Eos % (Auto) Baso % (Auto) Neut # (Auto) Lymph # (Auto) [place] # (Auto) Eos # (Auto) Baso # (Auto) Sodium Potassium Chloride Carbon Dioxide Anion Gap BUN Creatinine Estimated Creat Clear Estimated GFR Est GFR ( Amer) Glucose POC Glucose Calcium Vitamin B12 1035 Preliminary micro results at discharge 03/09/18 21:40 Blood Culture - Preliminary Blood NO GROWTH AFTER 48 HOURS 03/09/18 21:40 Blood Culture - Preliminary Blood NO GROWTH AFTER 48 HOURS DS: Diagnosis - Discharge Diagnosis (1) Diabetes mellitus type 2 in obese Status: Chronic (2) History of hypothyroidism Status: Chronic (3) Acute renal failure (ARF) Status: Acute (4) Bedbug bite Status: Acute (5) Fall Status: Acute (6) RBBB Status: Acute (7) Syncope Status: Resolved Discharge Plan - Patient Discharge Instructions ACTIVITY: Ambulate as tolerated DIET: continue same diet Patient Instructions: Acute Renal Failure, How to Prevent Falls - Follow up Plan Follow up with: Romulo Haynes [Primary Care Provider] - (follow-up pendmelissa GALVEZ from [facility]) Disposition: Xfer Intermediate Care [facility] Home Medications: Home Medications Medication Instructions Recorded Confirmed Type Carvedilol [Carvedilol 3.125mg Tab] 3.125 mg PO BID 03/10/18 03/10/18 History Diphenoxylate HCl/Atropine 1 - 2 each PO Q4HP PRN 03/10/18 03/10/18 History [Lomotil 2.5-0.025 mg Tablet] Fenofibrate 160 mg PO DAILY 03/10/18 03/10/18 History Gabapentin [Gabapentin 100mg Cap] 100 mg PO HSP PRN 03/10/18 03/10/18 History Insulin Glargine,Hum.rec.anlog 10 units SQ HS 03/10/18 03/10/18 History [Lantus Insulin 100units/mL 10mL vial] Levothyroxine Sodium 75 mcg PO DAILY 03/10/18 03/10/18 History [Levothyroxine 75mcg (0.075mg) Tab] Lisinopril [Lisinopril 10mg Tab] 10 mg PO DAILY 03/10/18 03/10/18 History Loratadine [Allergy Relief] 10 mg PO DAILY 03/10/18 03/10/18 History Metformin HCl 500 mg PO DAILY 03/10/18 03/10/18 History Olopatadine HCl 1 drop OP BID 03/10/18 03/10/18 History Pravastatin Sodium [Pravachol 40mg 40 mg PO HS 03/10/18 03/10/18 History Tablet] Primidone [Mysoline 50mg tablet] 100 mg PO DAILY 03/10/18 03/10/18 History Primidone [Mysoline 50mg tablet] 150 mg PO HS 03/10/18 03/10/18 History Torsemide [Demadex 20mg tablet] 40 mg PO DAILY 03/10/18 03/10/18 History hydroCHLOROthiazide 50 mg PO DAILY 03/10/18 03/10/18 History [Hydrochlorothiazide 50mg Tab] Prescriptions/Medication Reconciliation: Continue Insulin Glargine,Hum.rec.anlog [Lantus Insulin 100units/mL 10mL vial] 10 units SQ HS Lisinopril [Lisinopril 10mg Tab] 10 mg PO DAILY Primidone [Mysoline 50mg tablet] 100 mg PO DAILY Primidone [Mysoline 50mg tablet] 150 mg PO HS Pravastatin Sodium [Pravachol 40mg Tablet] 40 mg PO HS Diphenoxylate HCl/Atropine [Lomotil 2.5-0.025 mg Tablet] 1 - 2 each PO Q4HP PRN PRN Reason: STOMACH Fenofibrate 160 mg PO DAILY Levothyroxine Sodium [Levothyroxine 75mcg (0.075mg) Tab] 75 mcg PO DAILY Loratadine [Allergy Relief] 10 mg PO DAILY Metformin HCl 500 mg PO DAILY Carvedilol [Carvedilol 3.125mg Tab] 3.125 mg PO BID Gabapentin [Gabapentin 100mg Cap] 100 mg PO HSP PRN PRN Reason: LEG CRAMPS Olopatadine HCl 1 drop OP BID Discontinued Torsemide [Demadex 20mg tablet] 40 mg PO DAILY hydroCHLOROthiazide [Hydrochlorothiazide 50mg Tab] 50 mg PO DAILY
[2018-03-12 09:17] LABS: Hepatitis B Core Antibody IgM Negative (Negative); Hepatitis B Surface Antigen Negative (Negative)
[2018-03-12 16:16] LABS: Hepatitis C Antibody >11.0 s/co ratio (0.0-0.9)
== END 2018-03-12 11:04 | DRG 684 ==
LOC: 2ND 20:12 → ER 20:12 → OBSVTOIN 23:00 → 2ND 23:03
PROVIDERS: ADMIT Family Medicine; ATTEND Internal Medicine Adolescent Medicine